=== PATIENT | male | born 1945 | race Caucasian/White ===

== ENCOUNTER 2017-11-24 00:25 | Inpatient (IN) | payer MEDICARE, OTHER ==
[2017-11-24] VITALS (10 sets, daily range): BP systolic 124–175; BP diastolic 70–90
[~2017-11-24] VITALS: Ht 175.3 cm; Wt 90.7 kg
[~2017-11-24 00:25] MED LIST: ASPI-1471 PO; CLOP75TA43 PO; DOXA4TAB58 PO; GLIP-152 PO; GLUC100026 PO; IBUP800T37 PO; LEVO50TA86 PO; METO25TA93 PO; MULT1CAP59 PO; OMEG-96 PO; RANI-366 PO; SIMV-54 PO; UBID100C48 PO
[2017-11-24] MEDS ORDERED: fentaNYL CITR 250 MCG/5 ML AMP ONE (08:13)
[2017-11-24] MEDS ORDERED: PROPOFOL EMUL(*) 10MG/ML 20 ML 20 ML ONE (08:14)
[2017-11-24] MEDS ORDERED: ONDANSETRON 4 MG/2 ML VIAL ONE (08:14)
[2017-11-24] MEDS ORDERED: KETAMINE HCL 200 MG/20 ML MDV ONE (08:15)
[2017-11-24] MEDS ORDERED: NS 0.9% 20 ML SDV 20 ML ONE (08:39)
[2017-11-24] MEDS ORDERED: REMIFENTANIL HCL 1 MG VIAL ONE (08:41)
[2017-11-24] MEDS ORDERED: FAMOTIDINE 20 MG TAB PO ONE (10:00)
[2017-11-24] MEDS ORDERED: PREGABALIN 75 MG CAPSULE PO ONE (10:00)
[2017-11-24] MEDS ORDERED: NORMOSOL R SOLN(*) 1000 ML BAG 1,000 ML IV PRN (10:00)
[2017-11-24] MEDS ORDERED: ceFAZolin(*) 2GM/D5W 50ML 50 ML IVPB ONE (10:00)
[2017-11-24] MEDS ORDERED: LIDOCAINE/SOD BICARB 8.4% SYR ID ONE (10:00)
[2017-11-24] MEDS ORDERED: MIDAZOLAM 2 MG/2 ML VIAL IVP PRN (10:00)
[2017-11-24] MEDS ORDERED: ACETAMINOPHEN 500 MG TAB PO ONE (10:00)
[2017-11-24] MEDS ORDERED: THROMBIN (BOVINE) 20,000 UNIT VIAL ONE (10:02)
[2017-11-24] MEDS ORDERED: ROCURONIUM BROM 10 MG/ML 5 ML ONE (11:00)
[2017-11-24] MEDS ORDERED: fentaNYL CITR 100 MCG/2 ML AMP ONE (14:15)
[2017-11-24] MEDS ORDERED: LR(*) 1000 ML BAG 1,000 ML IV PRN (14:35)
[2017-11-24] MEDS ORDERED: ACETAMINOPHEN 500 MG TAB PO PRN (14:35)
[2017-11-24] MEDS ORDERED: FLUSH 10 ML SYR IVP PRN (14:35)
[2017-11-24] MEDS ORDERED: ONDANSETRON 4 MG/2 ML VIAL IVP PRN (14:35)
[2017-11-24] MEDS ORDERED: ACETAMINOPHEN(*)1000 MG/100 ML 100 ML IVPB PRN (14:35)
[2017-11-24] MEDS ORDERED: diphenhydrAMINE 25 MG CAP PO PRN (14:35)
[2017-11-24] MEDS ORDERED: BENZOCAINE/MENTHOL 1 EACH LOZG PO PRN (14:35)
[2017-11-24] MEDS ORDERED: BISACODYL 10 MG SUPP PR PRN (14:35)
[2017-11-24] MEDS: HYDROmorphone HCL 2 MG/ML SDV ONE (14:49)
--- NOTE | 2017-11-24 16:14 | RADIOLOGY IMAGING REPORT ---
FACILITY: [facility] [place] PATIENT NAME: Edin Mccall : 1945 MR: [id number] V: [id number] EXAM DATE: ORDERING PHYSICIAN: LITTLE GUAJARDO TECHNOLOGIST: Location: [facility] Patient: Edin Mccall : 1945 Visit/Account:[id number] Date of Sevice: 11/24/2017 Exam type: LUMBAR SPINE 1 VIEW History: L3-S1 LAMINECTOMIES, L4-5 POSTEROLATERAL FUSION Comparison: MR lumbar spine October 09, 2017. Findings: Two portable cross table lateral intraoperative views lumbar spine were submitted demonstrate in post erior lumbar interbody fusion at L4-5. IMPRESSION: 1. As above Report Dictated By: Trini Mendenahll MD at 11/24/2017 4:09 PM Report E-Signed By: Trini Mendenhall MD at 11/24/2017 4:10 PM WSN:[email or web address]
[2017-11-24] MEDS: APAP/HYDROCODONE 325/5 TAB PO PRN ×2 (16:59→22:01)
[2017-11-24] MEDS ORDERED: NS(*) 0.9% 250 ML BAG 250 ML ONE (18:09)
--- NOTE | 2017-11-24 18:09 | Hospitalist Consultation ---
History of Present Illness Requesting Physician Dr. Kumar Reason for Consult Diabetes mellitus History of Present Illness This patient was admitted for spine surgery. It is reported that his surgery went well and was without complication. History Problems: (1) CAD (coronary artery disease) (2) AL (myocardial infarction) (3) History of coronary artery stent placement (4) BPH (benign prostatic hyperplasia) (5) DM2 (diabetes mellitus, type 2) Home Meds Reported Medications Ibuprofen (IBUPROFEN) 800 Mg Tablet, 1 TAB PO BID, TAB 11/18/17 Glucosamine Sulfate 2KCL (GLUCOSAMINE) 1,000 Mg Tablet, 1000 MG PO DAILY 11/18/17 Multivitamin (MULTIVITAMINS) 1 Each Capsule, 1 EACH PO DAILY, CAPSULE 11/18/17 [place]-3 Fatty Acids/Fish Oil (OMEGA 3 1,000 MG SOFTGEL) 1 Each Capsule, 1 EACH PO QDAY, CAPSULE 11/18/17 Glipizide (GLIPIZIDE) 5 Mg Tablet, 5 MG PO BID 11/18/17 Levothyroxine Sodium (LEVOTHYROXINE SODIUM) 50 Mcg Tablet, 50 MCG PO QDAY, TAB 11/18/17 Aspirin (ASPIR 81) 81 Mg Tablet.dr, 81 MG PO BID, TAB 11/18/17 Ranitidine Hcl (ZANTAC) 150 Mg Tablet, 150 MG PO DAILY, TAB 11/18/17 Ubidecarenone (COQ-10) 100 Mg Capsule, 100 MG PO BID, CAPSULE 11/18/17 Doxazosin Mesylate (DOXAZOSIN MESYLATE) 4 Mg Tablet, 4 MG PO HS 11/18/17 Simvastatin (SIMVASTATIN) 40 Mg Tablet, 80 MG PO HS, TAB 11/18/17 Metoprolol Tartrate (METOPROLOL TARTRATE) 25 Mg Tablet, 0.5 TAB PO BID, TAB 11/18/17 Clopidogrel Bisulfate (PLAVIX) 75 Mg Tablet, 1 TAB PO QDAY, TAB 11/18/17 Allergies: Coded Allergies: atorvastatin (Verified Allergy, Severe, JOINT AND MUSCLE PAIN, 11/18/17) Patient History: FH: diabetes mellitus FATHER ( OF STROKE), MOTHER, FH: stroke FATHER ( OF STROKE), Hx Smoking: No Smoking Status: Never Smoker Caffeine/Cups Per Day: NONE Hx Alcohol Use: Yes Hx Substance Use Disorder: No Social Drug Use: Never History of IV Drug Use: No Review of Systems All Systems Reviewed/Normal: Yes Exam Vital Signs Vital Signs Date Time Temp Pulse Resp B/P (MAP) Pulse Ox O2 Delivery O2 Flow Rate FiO2 11/24/17 15:50 64 16 97 11/24/17 15:50 Nasal Cannula 2.0 11/24/17 15:50 97.6 124/70 (88) Neuro: No Gross deficits Eyes: PERRLA Cardiovascular: Regular Rate and Rhythm Respiratory: Clear to Auscultation Extremities: No Edema Integumentary: No Cyanosis Assessment and Plan Problems: (1) CAD (coronary artery disease) Assessment & Plan: He is on chronic treatment with aspirin, Plavix, metoprolol , and pravastatin. His aspirin and Plavix have been on hold for surgery. His metoprolol has been ordered with hold parameters. (2) DM2 (diabetes mellitus, type 2) Assessment & Plan: He is on chronic treatment with glipizide, which is currently on hold. He has been placed on sliding scale level #1. (3) BPH (benign prostatic hyperplasia) Assessment & Plan: He is on chronic treatment with doxazosin. Venous Thromboembolism Antithrombotics Is Pt On Any Antithrombotics?: No Exam Sepsis Risk: No Definite Risk ELI MALIN DO Nov 24, 2017 18:09
[2017-11-24] MEDS: ceFAZolin(*) 2GM/D5W 50ML 50 ML IVPB SCH (18:36)
[2017-11-24] MEDS: INSULIN HUM LISPRO 100 UN/ML 3 ML VIAL SUBQ PRN ×2 (18:37→21:30)
[2017-11-24] MEDS: DIAZEPAM 5 MG TAB PO PRN (18:47)
[2017-11-24] MEDS: DOCUSATE SODIUM 100 MG CAP PO SCH (21:27)
[2017-11-24] MEDS: DOXAZOSIN MESYLATE 2 MG TAB PO SCH (21:27)
[2017-11-24] MEDS: METOPROLOL TART 50 MG TAB PO SCH (21:28)
[2017-11-24] MEDS: SIMVASTATIN 40 MG TAB PO SCH (21:28)
[2017-11-25] MEDS: DIAZEPAM 5 MG TAB PO PRN ×2 (01:39→08:33)
[2017-11-25] MEDS: ceFAZolin(*) 2GM/D5W 50ML 50 ML IVPB SCH ×2 (02:31→10:21)
[2017-11-25] MEDS: APAP/HYDROCODONE 325/5 TAB PO PRN (02:39)
[2017-11-25 03:23] VITALS: BP 154/80
[2017-11-25] MEDS: HYDROmorphone HCL 2 MG/ML SDV IVP PRN ×2 (04:45→14:04)
[2017-11-25] MEDS: LEVOTHYROXINE SOD 0.05 MG TAB PO SCH (06:30)
[2017-11-25] MEDS: oxyCODONE HCL 5 MG CAP PO PRN ×4 (06:45→19:38)
[2017-11-25 07:28] VITALS: BP 123/75
--- NOTE | 2017-11-25 07:37 | OPERATIVE REPORT 1 ---
EVENT DATE: November 24, 2017 SURGEON: Yared Kumar M.D. ANESTHESIOLOGIST: Hosea Chris M.D. ANESTHESIA: General endotracheal. FISHER POT: NIKA Lakhani, LEAD PHP DEVELOPER PREOPERATIVE DIAGNOSIS 1. Lumbar third vertebra-sacral first vertebra (L3-S1) lumbar spinal stenosis with radiculopathy and neurogenic claudication. 2. Lumbar fourth vertebra-lumbar fifth vertebra (L4-L5) degenerative spondylolisthesis. POSTOPERATIVE DIAGNOSIS 1. Lumbar third vertebra-sacral first vertebra (L3-S1) lumbar spinal stenosis with radiculopathy and neurogenic claudication. 2. Lumbar fourth vertebra-lumbar fifth vertebra (L4-L5) degenerative spondylolisthesis. PROCEDURE PERFORMED 1. Lumbar third vertebra-sacral first vertebra (L3-S1) lumbar laminectomy, revision. 2. Lumbar fourth vertebra-lumbar fifth vertebra (L4-L5) posterior lateral instrumentation and fusion. IV FLUIDS 1600 mL. ESTIMATED BLOOD LOSS 140 mL. IMPLANTS USED 6.5 mm x 45 mm pedicle screws from [employer] x4, 5.5 mm x 45 mm connecting rods from [employer] x2 and locking caps from [employer] x4. SPECIMENS None. DRAINS None. COMPLICATIONS None. DISPOSITION Post-Anesthesia Care Unit. INDICATIONS Mr. Mccall is a 72-year-old gentleman with radiating anterior thigh pain, numbness and tingling. He had weakness in the extremities as well secondary to radiating pain and burning as well as weakness and heaviness in his legs. The majority of the symptoms were in an L4 distribution, although he did have symptoms down the posterior thighs and calves as well. His physical examination revealed full lumbar range of motion and normal muscle strength and sensation. His imaging studies showed severe spinal stenosis at L4-L5, where there was also an anterior listhesis present. There was L3-L4 stenosis and L5- S1 stenosis as well in addition to postsurgical changes consistent with laminoforaminotomy. Secondary to ongoing symptoms and failure to improve with nonsurgical care, Mr. Mccall was offered and elected to undergo lumbar laminectomies from L3-S1 with an L4-L5 posterior lateral instrumented fusion. Prior to surgery, I explained in detail to the patient the possible risks of surgery. These risks include bleeding, infection, damage to surrounding structures, nerve root injury, need for further surgery, spinal fluid leak, meningitis, persistent and/or worsening pain, , blindness, sexual dysfunction, autonomic nervous system dysfunction and as well as other unforeseen medical and surgical complications. We discussed the fact that revision surgery such as his have a higher incidence of surgical complications and he voiced understanding. DESCRIPTION OF PROCEDURE On the date of surgery, the patient was met in the preoperative hold area and all questions were answered. The operative site was identified and marked by myself. The patient was then brought in good condition to the operating room and after succumbing to anesthesia was placed in the prone position on a Christiano table. All bony protuberances and soft tissues were well padded in the standard fashion. Care was taken to maintain appropriate perfusion pressures during anesthesia. Prior to incision, preoperative antibiotics were administered according to the appropriate timing schedule. At the conclusion of the procedure, sponge and needle counts were correct x2. A final time-out was undertaken by members of the operating team to confirm correct patient, correct levels and correct surgery. An incision was then made over the intended surgical levels and sharp dissection was carried out down to the posterior elements. A large amount of postsurgical scar was encountered from about L5 down to S1 and this was carefully removed with a rongeur. A lateral radiograph was obtained to confirm appropriate spinal levels and then the Bovie was used to clear all soft tissues from the posterior elements including exposing the pedicle screw starting points for L4 and L5 pedicle screws bilaterally. This was accomplished by clearing down the laminas up to the pars intra-articularis and then out to the tips of the transverse processes of L4 and L5 bilaterally. A this point, thrombin soaked sponges were packed into those lateral gutters while we performed the laminectomy. A Leksell rongeur was used to remove the spinous processes of L3, L4 and L5. The midline was thinned further with a Leksell rongeur and high-speed bur. At the L3-L4 level, the superior insertion of the ligamentum flavum was undermined off the inferior aspect of the L3 lamina. A #4 Kerrison was used to perform midline decompression of the L3 lamina, taking care to use the Kumar elevator to free up any dural adhesions from surrounding bone and soft tissue prior to use of the Kerrison punch. I then moved inferiorly, again performing a midline decompression with a #4 Kerrison punch and again taking care to free up any dural adhesions prior to use of the Kerrison. Once the midline decompression was complete, I performed bilateral lateral recess decompressions at L3-L4, L4- L5 and L5-S1. At the conclusion of the decompression, a Beadle elevator was used to ensure adequate decompression of the lateral recesses as well as at the foramina at all levels. Attention was then turned to placement of pedicle screws in the fusion portion of the procedure. Starting points for pedicle screws were identified at approximately the intersection of the pars intra-articularis, the midpoint of the transverse process and the lateral border of the facet joint. A high-speed bur was used to decorticate the starting point and then a Lenke type probe was advanced against resistance through the isthmus of the pedicle and into the vertebral body. A ball tip feeler was used to palpate the pedicle superiorly, inferiorly , medially, laterally as well as distally to ensure absence of bony breaching. 6.5 mm x 45 mm pedicle screws were chosen and inserted. As each screw was inserted, it was tested with neurophysiologic monitoring to confirm absence of bony breaching. Once all four screws had been placed, specifically bilateral screws at L4 and L5, we then selected 45 mm connecting rods and placed these within the tulips. On the right side, a very small reduction was required while on the left side a slightly more significant reduction was needed. Once the rods were seated int he tulips of the screws, locking caps were applied and tightened and then they were finally tightened. The wound was irrigated with copious sterile saline solution and then I used the high-speed bur to decorticate the transverse processes of L4 and L5 bilaterally. The local bone that had been harvested from the laminectomy was run through a bone bill and then packed in the lateral gutters along the transverse processes of L4 and L5 bilaterally. A final radiograph was obtained to confirm appropriate placement of instrumentation and the wound was then closed in layers using a running stitch for the deep fascia, inverted interrupted sutures for the subcutaneous tissue and then a running subcuticular skin stitch. Sponge and needle counts were correct x2. POSTOPERATIVE CARE PLAN Mr. Mccall will remain in the hospital overnight and perhaps longer, depending on how he does with physical therapy and his postoperative recovery. He will then follow up in my clinic two weeks postoperatively for a wound check and examination. BRANNON
[2017-11-25] MEDS ORDERED: NS(*) 0.9% 500 ML BAG 500 ML IV PRN (08:25)
[2017-11-25] MEDS: METOPROLOL TART 50 MG TAB PO SCH ×2 (09:01→21:32)
[2017-11-25] MEDS: INSULIN HUM LISPRO 100 UN/ML 3 ML VIAL SUBQ PRN ×4 (09:02→19:48)
[2017-11-25] MEDS: DOCUSATE SODIUM 100 MG CAP PO SCH ×2 (09:05→21:31)
--- NOTE | 2017-11-25 09:57 | Hospitalist Progress Note ---
Subjective Progress Notes Subjective He has complaints of pain to the surgical site. He had no acute events overnight. Patient Complains of: Cardiovascular: No: Chest Pain Respiratory: No: Shortness of Breath Physical Exam Vital Signs Date Time Temp Pulse Resp B/P (MAP) Pulse Ox O2 Delivery O2 Flow Rate FiO2 11/25/17 07:37 93 Nasal Cannula 1.0 11/25/17 07:28 98.5 88 16 123/75 (91) Intake and Output 11/26/17 07:00 Intake Total 160 ml Balance 160 ml Intake Oral 160 ml General Appearance: Alert, Awake, No Acute Distress, Afebrile Neuro: No Gross deficits Cardiovascular: Regular Rate and Rhythm Respiratory: No Respiratory Distress, Clear to Auscultation GI: Soft and Non-Tender Psych: Alert & Oriented X3, Appropriate Mood & Affect Assessment and Plan Problems: (1) CAD (coronary artery disease) Assessment & Plan: He is on chronic treatment with aspirin, Plavix, metoprolol , and pravastatin. His aspirin and Plavix have been on hold for surgery. We will get approval from Dr. Kumar to restart his Plavix and Aspirin. His metoprolol has been ordered with hold parameters. (2) DM2 (diabetes mellitus, type 2) Assessment & Plan: He is on chronic treatment with glipizide, which is currently on hold. He has been placed on sliding scale level #1. (3) BPH (benign prostatic hyperplasia) Assessment & Plan: He is on chronic treatment with doxazosin. Exam Sepsis Risk: No Definite Risk COLIN BARILLAS ELEMENTARY EDUCATION TUTOR Nov 25, 2017 09:57
[2017-11-25 11:30] VITALS: BP 136/75
[2017-11-25 12:11] VITALS: Ht 175.3 cm; Wt 90.7 kg
--- NOTE | 2017-11-25 17:51 | RADIOLOGY IMAGING REPORT ---
FACILITY: [facility] PATIENT NAME: Edin Mccall : 1945 MR: [id number] V: [id number] EXAM DATE: ORDERING PHYSICIAN: LITTLE GUAJARDO TECHNOLOGIST: Location: [facility] [place] Patient: Edin Mccall : 1945 Visit/Account:[id number] Date of Sevice: 11/25/2017 Exam type: LUMBAR SPINE 2 OR 3 VIEW History: lumbar surgery Comparison: Intraoperative images the lumbar spine November 24, 2017. Findings: AP and lateral views of the lumbar spine demonstrate posterior decompression at L3-4 and five. There are bilateral pedicle screws and posterior fixation rods from posterior lumbar interbody fusion at L 4-5. There is moderate disc space narrowing at L4-5. No subluxations are appreciated. Incidentally noted are moderate vascular calcifications in the abdominal aorta IMPRESSION: 1. Postsurgical changes from posterior decompression at L3-L5 with a posterior lumbar interbody fusi on at L4-5. No subluxations identified Report Dictated By: Trini Mendenhall MD at 11/25/2017 5:45 PM Report E-Signed By: Trini Mendenhall MD at 11/25/2017 5:47 PM WSN:[email or web address]
[2017-11-25 20:07] VITALS: BP 148/80
[2017-11-25] MEDS: DOXAZOSIN MESYLATE 2 MG TAB PO SCH (21:31)
[2017-11-25] MEDS: SIMVASTATIN 40 MG TAB PO SCH (21:31)
[2017-11-25 23:30] VITALS: BP 124/79
[2017-11-26] VITALS (7 sets, daily range): BP systolic 123–157; BP diastolic 76–85
[2017-11-26] MEDS: APAP/HYDROCODONE 325/5 TAB PO PRN ×4 (04:48→23:31)
[2017-11-26] MEDS: LEVOTHYROXINE SOD 0.05 MG TAB PO SCH (06:36)
[2017-11-26] MEDS: INSULIN HUM LISPRO 100 UN/ML 3 ML VIAL SUBQ PRN ×3 (08:17→21:37)
[2017-11-26] MEDS: DOCUSATE SODIUM 100 MG CAP PO SCH ×2 (09:51→21:31)
[2017-11-26] MEDS: METOPROLOL TART 50 MG TAB PO SCH ×2 (09:52→21:34)
[2017-11-26] MEDS: RANITIDINE HCL 150 MG TAB PO SCH ×2 (11:32→21:31)
[2017-11-26] MEDS: MAGNESIUM HYDROXIDE* 30ML UDCP PO PRN (11:32)
[2017-11-26] MEDS: oxyCODONE HCL 5 MG CAP PO PRN ×3 (11:32→21:54)
[2017-11-26] MEDS: HYDROmorphone HCL 2 MG/ML SDV IVP PRN (13:34)
--- NOTE | 2017-11-26 14:33 | Hospitalist Progress Note ---
Subjective Progress Notes Subjective Patient has complaints of pain to surgical site. He reports decreased mobility since surgery. He had no acute events overnight. Patient Complains of: Cardiovascular: No: Chest Pain Respiratory: No: Shortness of Breath Physical Exam Vital Signs Date Time Temp Pulse Resp B/P (MAP) Pulse Ox O2 Delivery O2 Flow Rate FiO2 11/26/17 11:37 98.0 96 12 153/85 (107) 90 Nasal Cannula 0.5 Intake and Output 11/27/17 01:00 Intake Total 1330 ml Output Total 1420 ml Balance -90 ml Intake Oral 1330 ml Output Urine Total 1420 ml # Voids 2 General Appearance: Alert, Awake, No Acute Distress, Afebrile Neuro: No Gross deficits Cardiovascular: Regular Rate and Rhythm Respiratory: No Respiratory Distress, Clear to Auscultation GI: Soft and Non-Tender Psych: Alert & Oriented X3, Appropriate Mood & Affect Assessment and Plan Problems: (1) CAD (coronary artery disease) Assessment & Plan: He is on chronic treatment with aspirin, Plavix, metoprolol , and pravastatin. His aspirin and Plavix have been on hold for surgery. We will get approval from Dr. Kumar to restart his Plavix and Aspirin. His metoprolol has been ordered with hold parameters. (2) DM2 (diabetes mellitus, type 2) Assessment & Plan: He is on chronic treatment with glipizide, which is currently on hold. He has been placed on sliding scale level #1. (3) BPH (benign prostatic hyperplasia) Assessment & Plan: He is on chronic treatment with doxazosin. Exam Sepsis Risk: No Definite Risk COLIN BARILLAS SOAKING TANK WORKER Nov 26, 2017 14:32
[2017-11-26] MEDS: SIMVASTATIN 40 MG TAB PO SCH (21:30)
[2017-11-26] MEDS: DOXAZOSIN MESYLATE 2 MG TAB PO SCH (21:31)
[2017-11-27 03:46] VITALS: BP 124/82
[2017-11-27] MEDS: APAP/HYDROCODONE 325/5 TAB PO PRN ×4 (03:51→23:20)
[2017-11-27] MEDS: LEVOTHYROXINE SOD 0.05 MG TAB PO SCH (06:05)
[2017-11-27 07:04] VITALS: BP 144/81
[2017-11-27] MEDS: RANITIDINE HCL 150 MG TAB PO SCH ×2 (08:43→20:56)
[2017-11-27] MEDS: DOCUSATE SODIUM 100 MG CAP PO SCH ×2 (08:44→20:56)
[2017-11-27] MEDS: METOPROLOL TART 50 MG TAB PO SCH ×2 (08:44→20:56)
[2017-11-27] MEDS ORDERED: glipiZIDE 5 MG TAB PO SCH (09:45)
[2017-11-27] MEDS: CLOPIDOGREL BISULFATE 75MG TAB PO SCH (10:38)
[2017-11-27] MEDS: DIAZEPAM 5 MG TAB PO PRN (10:39)
[2017-11-27] MEDS: ASPIRIN 81 MG ENTERIC COATED PO SCH (10:39)
[2017-11-27 11:07] VITALS: BP 158/78
--- NOTE | 2017-11-27 11:17 | Hospitalist Progress Note ---
Subjective Progress Notes Subjective He has no complaints this morning. He had no acute events overnight. Patient Complains of: Cardiovascular: No: Chest Pain Respiratory: No: Shortness of Breath Physical Exam Vital Signs Date Time Temp Pulse Resp B/P (MAP) Pulse Ox O2 Delivery O2 Flow Rate FiO2 11/27/17 11:07 97.8 85 16 158/78 (104) 94 Nasal Cannula 1.5 Intake and Output 11/28/17 07:00 Intake Total 600 ml Output Total 500 ml Balance 100 ml Intake Oral 600 ml Output Urine Total 500 ml General Appearance: Alert, Awake, No Acute Distress, Afebrile Neuro: No Gross deficits Cardiovascular: Regular Rate and Rhythm Respiratory: No Respiratory Distress, Clear to Auscultation GI: Soft and Non-Tender Psych: Alert & Oriented X3, Appropriate Mood & Affect Assessment and Plan Problems: (1) CAD (coronary artery disease) Assessment & Plan: He is on chronic treatment with aspirin, Plavix, metoprolol , and pravastatin. We have restarted aspirin and Plavix. His metoprolol has been ordered with hold parameters. (2) DM2 (diabetes mellitus, type 2) Assessment & Plan: He is on chronic treatment with glipizide. He also has been placed on sliding scale level #1. (3) BPH (benign prostatic hyperplasia) Assessment & Plan: He is on chronic treatment with doxazosin. Exam Sepsis Risk: No Definite Risk COLIN BARILLAS DELIVERY ASSISTANT Nov 27, 2017 11:17
[2017-11-27] MEDS: oxyCODONE HCL 5 MG CAP PO PRN ×2 (11:27→19:51)
[2017-11-27] MEDS: INSULIN HUM LISPRO 100 UN/ML 3 ML VIAL SUBQ PRN ×2 (12:24→16:54)
[2017-11-27] MEDS: HYDROmorphone HCL 2 MG/ML SDV IVP PRN (12:39)
[2017-11-27 14:23] VITALS: BP 160/83
[2017-11-27] MEDS: glipiZIDE 5 MG TAB PO SCH (16:54)
[2017-11-27 18:57] VITALS: BP 162/81
[2017-11-27] MEDS: DOXAZOSIN MESYLATE 2 MG TAB PO SCH (20:56)
[2017-11-27] MEDS: MAGNESIUM HYDROXIDE* 30ML UDCP PO PRN (20:57)
[2017-11-27] MEDS: SIMVASTATIN 40 MG TAB PO SCH (20:57)
[2017-11-27 22:29] VITALS: BP 145/81
[2017-11-28 02:46] VITALS: BP 137/98
[2017-11-28] MEDS: LEVOTHYROXINE SOD 0.05 MG TAB PO SCH (06:07)
[2017-11-28] MEDS: APAP/HYDROCODONE 325/5 TAB PO PRN (07:22)
[2017-11-28 07:23] VITALS: BP 164/83
[2017-11-28] MEDS: RANITIDINE HCL 150 MG TAB PO SCH (08:20)
[2017-11-28] MEDS: DOCUSATE SODIUM 100 MG CAP PO SCH (08:20)
[2017-11-28] MEDS: CLOPIDOGREL BISULFATE 75MG TAB PO SCH (08:20)
[2017-11-28] MEDS: ASPIRIN 81 MG ENTERIC COATED PO SCH (08:20)
[2017-11-28] MEDS: METOPROLOL TART 50 MG TAB PO SCH (08:20)
[2017-11-28] MEDS: glipiZIDE 5 MG TAB PO SCH (08:21)
[2017-11-28] MEDS: INSULIN HUM LISPRO 100 UN/ML 3 ML VIAL SUBQ PRN (08:21)
[2017-11-28] MEDS ORDERED: POLYETHYLENE GLYCOL 17 GM PKT PO SCH (09:00)
--- NOTE | 2017-11-28 09:31 | Hospitalist Progress Note ---
Subjective Progress Notes Subjective He has complaints of constipation today. He had no acute events overnight. Patient Complains of: Cardiovascular: No: Chest Pain Respiratory: No: Shortness of Breath Physical Exam Vital Signs Date Time Temp Pulse Resp B/P (MAP) Pulse Ox O2 Delivery O2 Flow Rate FiO2 11/28/17 08:27 96 Room Air 11/28/17 07:23 97.9 88 10 164/83 (110) 11/28/17 02:46 1.0 Intake and Output 11/29/17 07:00 Intake Total 240 ml Output Total 400 ml Balance -160 ml Intake Oral 240 ml Output Urine Total 400 ml General Appearance: Alert, Awake, No Acute Distress, Afebrile Neuro: No Gross deficits Cardiovascular: Regular Rate and Rhythm Respiratory: No Respiratory Distress, Clear to Auscultation Psych: Alert & Oriented X3, Appropriate Mood & Affect Assessment and Plan Problems: (1) S/P lumbar fusion Status: Acute Assessment & Plan: Followed by Dr. Kumar. We will add Miralax for constipation. He will go to [facility] today for further rehab. (2) CAD (coronary artery disease) Assessment & Plan: He is on chronic treatment with aspirin, Plavix, metoprolol , and pravastatin. His metoprolol has been ordered with hold parameters. (3) DM2 (diabetes mellitus, type 2) Assessment & Plan: He is on chronic treatment with glipizide. He also has been placed on sliding scale level #1. (4) BPH (benign prostatic hyperplasia) Assessment & Plan: He is on chronic treatment with doxazosin. Exam Sepsis Risk: No Definite Risk COLIN BARILLAS Nov 28, 2017 09:31
== END 2017-11-28 11:29 | DRG 460 ==
LOC: OR 00:25 → MED 15:50 → INTOOBSV 15:50 → OBSVTOIN 11-25
PROVIDERS: ADMIT Orthopaedic Surgery; ATTEND Orthopaedic Surgery
PROC: 0SG0071 Fusion of Lumbar Vertebral Joint with Autologous Tissue Substitute, Posterior Approach, Posterior Column, Open Approach (ICD-10-PCS; principal; 2017-11-25)
PROC: 01NB0ZZ Release Lumbar Nerve, Open Approach (ICD-10-PCS; 2017-11-25)
DX: M48.062 Spinal stenosis, lumbar region with neurogenic claudication (principal); M43.16 Spondylolisthesis, lumbar region; M54.16 Radiculopathy, lumbar region; M48.07 Spinal stenosis, lumbosacral region; M54.17 Radiculopathy, lumbosacral region; I25.10 Atherosclerotic heart disease of native coronary artery without angina pectoris; E11.9 Type 2 diabetes mellitus without complications; I10 Essential (primary) hypertension; I25.2 Old myocardial infarction; E78.5 Hyperlipidemia, unspecified; K21.9 Gastro-esophageal reflux disease without esophagitis; N40.0 Benign prostatic hyperplasia without lower urinary tract symptoms; Z95.1 Presence of aortocoronary bypass graft
CPT/HCPCS: 36415; 36416; 72020; 72100; 82948; 86850; 86900; 86901; 97161; C1713; G0378; J0690; J1170; J2405; J2704; J3010; J3490; J7050

== ENCOUNTER 2017-11-28 11:30 | Inpatient (IN) | payer MEDICARE, OTHER ==
[2017-11-25 12:11] VITALS: Ht 175.3 cm; Wt 93.0 kg
[~2017-11-28] VITALS: Ht 175.3 cm; Wt 93.0 kg
[2017-11-28] MEDS ORDERED: MAGNESIUM HYDROXIDE* 30ML UDCP PO PRN (11:43)
[2017-11-28] MEDS ORDERED: ACETAMINOPHEN 500 MG TAB PO PRN (11:43)
[2017-11-28] MEDS ORDERED: oxyCODONE HCL 5 MG CAP PO PRN (11:43)
[2017-11-28] MEDS ORDERED: POLYETHYLENE GLYCOL 17 GM PKT PO SCH (11:43)
[2017-11-28] MEDS ORDERED: BISACODYL 10 MG SUPP PR PRN (11:43)
[2017-11-28] MEDS ORDERED: POLYETHYLENE GLYCOL 17 GM PKT PO PRN (11:45)
[2017-11-28] MEDS: APAP/HYDROCODONE 325/5 TAB PO PRN ×4 (12:28→21:30)
[2017-11-28] MEDS: INSULIN HUM LISPRO 100 UN/ML 3 ML VIAL SUBQ PRN (12:41)
[2017-11-28 13:20] VITALS: BP 160/76
--- NOTE | 2017-11-28 13:44 | Consultant Pharmacy Review ---
Antenna Design Engineer Review Beers Criteria Medication 2014 Alpha 1 Blockers: Doxazosin Benzodiazapines (long acting): Diazepam Sliding Scale Insulin: Slidin Scale Insulin Other General Cautions Lexicomp Interaction Analysis A = No known interaction C = Monitor therapy X = Avoid combination B = No action needed D = Consider therapy modification Drugs in this analysis: Acetaminophen; Bisacodyl; Cardura; DiazePAM; Docusate Sodium (SYN); Ecotrin Low Strength [OTC]; Glucotrol; HumaLOG; Levothyroxine; Lortab; Metoprolol; Milk of Magnesia [OTC]; MiraLax [OTC]; Plavix; RaNITIdine; Zocor * Drug-Drug Interactions D Bisacodyl Milk of Magnesia [OTC] (Antacids) D DiazePAM (SEAWEED HARVESTER Depressants) Lortab (HYDROcodone) D Levothyroxine Milk of Magnesia [OTC] (Magnesium Salts) Depends on Route C Cardura (Alpha1-Blockers) Metoprolol (Beta-Blockers) Depends on Dosage Form C Ecotrin Low Strength [OTC] (Agents with Antiplatelet Properties) Plavix ( Agents with Antiplatelet Properties) Depends on International labeling C Ecotrin Low Strength [OTC] (Salicylates) Glucotrol (Blood Glucose Lowering Agents) Depends on Dose C Ecotrin Low Strength [OTC] (Salicylates) HumaLOG (Blood Glucose Lowering Agents) Depends on Dose C Ecotrin Low Strength [OTC] (Salicylates) Plavix (Agents with Antiplatelet Properties) C Glucotrol (Antidiabetic Agents) HumaLOG (Hypoglycemia-Associated Agents) C Glucotrol (Hypoglycemia-Associated Agents) HumaLOG (Hypoglycemia-Associated Agents) C Glucotrol (Sulfonylureas) Metoprolol (Beta-Blockers) Depends on Dosage Form C Glucotrol (Sulfonylureas) RaNITIdine C HumaLOG (Insulins) Metoprolol (Beta-Blockers) B Acetaminophen Lortab (Opioid Analgesics) B DiazePAM Metoprolol B DiazePAM Milk of Magnesia [OTC] (Antacids) B Ecotrin Low Strength [OTC] (Salicylates) Milk of Magnesia [OTC] (Antacids) Depends on Duration B Glucotrol (Sulfonylureas) Milk of Magnesia [OTC] (Antacids) B Milk of Magnesia [OTC] (Antacids) RaNITIdine (Histamine H2 Receptor Antagonists) B Plavix (Clopidogrel) Zocor (Simvastatin) Pneumococcal Vaccine HX Pneumo Vac ([id number]): Yes (01/2017) Comments Regarding the Review Patient had Prevnar 13 in January 2017 so would be a candidate for Pneumovax 23 this January. Please monitor for falls and respiratory depression due to Lortab ,OxyIR and Diazepam use. Re-evaluate necessity of these meds every 1-2 weeks. Do not exceed 3 gms of acetaminophen in 24 hours as patient has orders for both Lortab and acetaminophen. CORINA CHANDLER Nov 28, 2017 13:43
--- NOTE | 2017-11-28 14:18 | Medical Nutrition Therapy ---
Nutrition Anthropometrics Height (Inches): 69.00 Height (Calculated Centimeters: 175.725326 Weight (Pounds): 205 Weight (Calculated Kilograms): 92.986 Tomás Nutrition Score: Adequate Tomás Nutrition Risk Score: 19 Dietary Referral Nutrition Risk Factors: Nutrition Risk Comment: Physical Findings Physical Appearance: Obese BMI 30-39 Skin Appearance Skin Appearance: Edema Edema Location Modifier: Edema Location: Type of Edema: Degree of Edema: Gastrointestinal Symptoms GI Symtoms: Constipation Tube Present: Bowel Sounds: Recent Bowel Pattern: Constipated Stool Characteristics: Nutritional Diagnosis Nutritional Risk Acuity 3: Fair Appetite Nutritional Risk Acuity 4: Modified Diet Past Medical History: 11/25. Hx of coronary artery bypass, myocardial infarction, stent, and T2DM. Nutritional Acuity: 3-Mild Nutrition Diagnosis: Increased Nutrient Needs Nutrition Etiology: Physiological Causes Nutrition Problem/Etiology/Sym: Increased protein needs related to physiological causes as evidenced by recent back surgery. Energy Requirement: 1960 ([id number]) Protein Requirement: 92 (92-101g (1-1.1 g/kg)) Fluid Requirement: 1960 Diet Type: Diabetic Nutrition Intervention: Cont diet as ordered, Encourage intake Nutrition Monitoring & Eval RD Patient Assessment Time: [address] Assessment Type: RD Assessment Patient Nutrition Acuity: 3-Mild Follow Up Date: Dec 02, 2017 Nutritional Comment: 12/29 Pt transferred to [facility] for ongoing rehab following lumbar fusion surgery. He is currently on an ADA diet with an average intake of 65%. Latest glc 174. Will cont to monitor and encourage intake. -NATASHA CHOWDHURY Nov 28, 2017 14:18
[2017-11-28] MEDS: glipiZIDE 5 MG TAB PO SCH (16:40)
[2017-11-28] MEDS: RANITIDINE HCL 150 MG TAB PO SCH (20:44)
[2017-11-28] MEDS: DOCUSATE SODIUM 100 MG CAP PO SCH (20:44)
[2017-11-28] MEDS: SIMVASTATIN 40 MG TAB PO SCH (20:44)
[2017-11-28] MEDS: DOXAZOSIN MESYLATE 2 MG TAB PO SCH (20:44)
[2017-11-28] MEDS: UBIDECARENONE 100 MG PO SCH (20:44)
[2017-11-28] MEDS: METOPROLOL TART 50 MG TAB PO SCH (20:45)
[2017-11-29] MEDS: APAP/HYDROCODONE 325/5 TAB PO PRN ×5 (01:32→16:35)
[2017-11-29] MEDS: LEVOTHYROXINE SOD 0.05 MG TAB PO SCH (06:36)
[2017-11-29 08:02] VITALS: BP 151/78
--- NOTE | 2017-11-29 08:41 | OT ECF NOTE ---
Type of Note: Initial Note Primary Medical Diagnosis: Generalized weakness s/p L3-S1 laminectomy and L4-L5 fusion. DOS: 11/25/[address] Kumar. LUMBAR PRECAUTIONS. [place] lumbar corset donned for comfort when ambulating Occupational Therapy Evaluation Date: 11/29/17 SUBJECTIVE: Prior Hospitalization: [facility] 11/25/17 thru 11/28/17 Prior Level of Function: Independent with ADLs. Assist from spouse for occasional IADLs (cooking/cleaning). Prior Living Status: Bi-level house Spouse Assist by family Community Services: No known needs Home Accessibility: Stairs with rails All needs on one level Basement in home Walk-in shower Tub/shower combination Equipment Owned: Front wheeled walker. Pt plans to obtain a toilet riser with arms from his local [facility]. Medical Complications/Past Medical History: CAD, Type 2 DM, BPH Psychosocial Support: Supportive spouse Pain Scale (0-10): 4/10. Reports improved pain with ambulation when Baja corset is donned. OBJECTIVE: Strength: MMT: Right Left Shoulder Flexion WFL WFL Elbow Flexion WFL WFL Wrist Extension WFL WFL Welt Trimming Machine Operator WFL WFL (5= normal, 4= good, 3= fair, 2= poor, 1= trace) ROM: Both upper extremities, WFL Sensation: No concerns Functional Transfer: Assistive Device: Front wheeled walker, Gait belt Transfer Ability: CGA. SpO2 WNL room air. ADL: Upper body dressing: Assistive device: Upper body dressing ability: Minimum assistance Lower body dressing: Assistive device: Lower body dressing ability: N/T Toileting: Assistive device: Raised toilet seat, Grab rails Toileting ability: CGA Grooming/hygiene: Assistive device: Grooming ability: N/T Bathing: Assistive device: Bathing ability: N/T Standardized Assessment: Marcus Index of Activities of Daily Living 15/20 upon initial evaluation (02/05). ASSESSMENT: Mauricio presents to [facility] with decreased balance and endurance s/p L3- S1 laminectomy and L4-L5 fusion. At [facility] he was (I) with ADLs/IADLs. Currently, he requires CGA-Min A for ADLs and presents with fatigue/decreased balance with short distance ambulation. He will benefit from skilled OT services to improve activity tolerance and optimize (I) with ADLs. Problem List/Current Limitations: Pain Decreased activity tolerance Decreased strength Decreased balance Generalized weakness Short Term Goals: 1) Pt will be Mod (I) UB/LB dressing. 2) Pt will be Mod (I) toilet task. 3) Pt will be Independent grooming/hygiene. 4) Pt will be SBA shower task. 5) Pt Marcus Index of ADLs score will improve by 2 points. Security Public Safety Officer Goals: Return home with occasional assist from spouse Patient Goals: Return home Rehabilitation Prognosis: Good Barriers to Discharge: Pain PLAN: The patient will benefit from skilled occupational therapy services 5 times per week for 2 weeks including: Ther ex ADL training Safety training Ther act IADL training Transfer training Adaptive equip training Bed mobility Energy conservation Thank you for this referral. If you have any questions, concerns, or comments about this report or plan, please contact me at . Nina August MS, OTR/L Occupational Therapist [place]
[2017-11-29] MEDS: RANITIDINE HCL 150 MG TAB PO SCH ×2 (08:45→21:05)
[2017-11-29] MEDS: METOPROLOL TART 50 MG TAB PO SCH ×2 (08:45→21:05)
[2017-11-29] MEDS: ASPIRIN 81 MG ENTERIC COATED PO SCH (08:45)
[2017-11-29] MEDS: DIAZEPAM 5 MG TAB PO PRN ×2 (08:45→21:06)
[2017-11-29] MEDS: CLOPIDOGREL BISULFATE 75MG TAB PO SCH (08:45)
[2017-11-29] MEDS: glipiZIDE 5 MG TAB PO SCH ×2 (08:46→17:35)
[2017-11-29] MEDS: DOCUSATE SODIUM 100 MG CAP PO SCH ×2 (08:46→21:00)
[2017-11-29] MEDS: INSULIN HUM LISPRO 100 UN/ML 3 ML VIAL SUBQ PRN ×4 (08:47→21:07)
[2017-11-29] MEDS: UBIDECARENONE 100 MG PO SCH (09:00)
[2017-11-29 15:40] VITALS: BP 148/79
[2017-11-29] MEDS: oxyCODONE HCL 5 MG CAP PO PRN (21:05)
[2017-11-29] MEDS: UBIQUINONE PO SCH (21:05)
[2017-11-29] MEDS: DOXAZOSIN MESYLATE 2 MG TAB PO SCH (21:06)
[2017-11-29] MEDS: SIMVASTATIN 40 MG TAB PO SCH (21:06)
[2017-11-30] MEDS: oxyCODONE HCL 5 MG CAP PO PRN ×2 (01:06→21:52)
[2017-11-30] MEDS: LEVOTHYROXINE SOD 0.05 MG TAB PO SCH (06:15)
[2017-11-30] MEDS: APAP/HYDROCODONE 325/5 TAB PO PRN ×2 (06:15→17:09)
[2017-11-30 07:35] VITALS: BP 141/83
[2017-11-30] MEDS: UBIQUINONE PO SCH ×2 (09:03→21:00)
[2017-11-30] MEDS: METOPROLOL TART 50 MG TAB PO SCH ×2 (09:03→21:47)
[2017-11-30] MEDS: RANITIDINE HCL 150 MG TAB PO SCH ×2 (09:03→21:45)
[2017-11-30] MEDS: CLOPIDOGREL BISULFATE 75MG TAB PO SCH (09:03)
[2017-11-30] MEDS: DOCUSATE SODIUM 100 MG CAP PO SCH ×2 (09:03→21:45)
[2017-11-30] MEDS: ASPIRIN 81 MG ENTERIC COATED PO SCH (09:03)
[2017-11-30] MEDS: INSULIN HUM LISPRO 100 UN/ML 3 ML VIAL SUBQ PRN ×3 (09:04→17:13)
[2017-11-30] MEDS: glipiZIDE 5 MG TAB PO SCH ×2 (09:10→17:09)
[2017-11-30 15:10] VITALS: BP 169/86
[2017-11-30] MEDS: SIMVASTATIN 40 MG TAB PO SCH (21:52)
[2017-11-30] MEDS: DOXAZOSIN MESYLATE 2 MG TAB PO SCH (21:57)
[2017-12-01] MEDS: oxyCODONE HCL 5 MG CAP PO PRN ×2 (03:12→23:53)
[2017-12-01] MEDS: DIAZEPAM 5 MG TAB PO PRN ×4 (03:12→23:52)
[2017-12-01] MEDS: LEVOTHYROXINE SOD 0.05 MG TAB PO SCH (05:15)
[2017-12-01 07:30] VITALS: BP 138/78
[2017-12-01] MEDS: glipiZIDE 5 MG TAB PO SCH ×2 (08:02→17:07)
[2017-12-01] MEDS: ASPIRIN 81 MG ENTERIC COATED PO SCH (08:33)
[2017-12-01] MEDS: RANITIDINE HCL 150 MG TAB PO SCH ×2 (08:34→20:37)
[2017-12-01] MEDS: METOPROLOL TART 50 MG TAB PO SCH ×2 (08:34→20:37)
[2017-12-01] MEDS: CLOPIDOGREL BISULFATE 75MG TAB PO SCH (08:34)
[2017-12-01] MEDS: UBIQUINONE PO SCH ×2 (08:34→20:37)
[2017-12-01] MEDS: DOCUSATE SODIUM 100 MG CAP PO SCH ×2 (08:36→20:37)
[2017-12-01] MEDS: INSULIN HUM LISPRO 100 UN/ML 3 ML VIAL SUBQ PRN ×3 (08:39→20:40)
[2017-12-01] MEDS: APAP/HYDROCODONE 325/5 TAB PO PRN ×3 (09:23→19:50)
--- NOTE | 2017-12-01 13:18 | Medical Nutrition Therapy ---
Physical Findings Physical Appearance: Obese BMI 30-39 Skin Appearance Skin Appearance: Edema Edema Location Modifier: Edema Location: Type of Edema: Degree of Edema: Gastrointestinal Symptoms GI Symtoms: Change in Bowel Pattern Tube Present: Bowel Sounds: Recent Bowel Pattern: Constipated Stool Characteristics: Nutritional Diagnosis Nutritional Risk Acuity 3: Fair Appetite Nutritional Risk Acuity 4: Modified Diet Past Medical History: 11/25. Hx of coronary artery bypass, myocardial infarction, stent, and T2DM. Nutritional Acuity: 3-Mild Nutrition Diagnosis: Increased Nutrient Needs Nutrition Etiology: Physiological Causes Nutrition Problem/Etiology/Sym: Increased protein needs related to physiological causes as evidenced by recent back surgery. Energy Requirement: 1959 ([id number]) Protein Requirement: 92 (92-101g (1-1.1 g/kg)) Fluid Requirement: 1960 Diet Type: Diabetic Nutrition Intervention: Cont diet as ordered, Encourage intake Nutrition Monitoring & Eval Nutrition Goals: Eat 50-100% Meal, Drink > 2 liters/day RD Patient Assessment Time: [address] Assessment Type: RD Re-Assessment Patient Nutrition Acuity: 3-Mild Follow Up Date: Dec 09, 2017 Nutritional Comment: 12/29 Pt transferred to [facility] for ongoing rehab following lumbar fusion surgery. He is currently on an ADA diet with an average intake of 65%. Latest glc 174. Will cont to monitor and encourage intake. -EK 12/01. Pt cont to have pain in back and hip. Continues to follow a diabetic diet. No meals to report today, but has consumed 25-100% of meals the past couple of days. Pt is receiving 1-5 units Lispro SS. Noteable labs include: elevated BG 195, with no other labs available. Cont diabetic diet and monitor/encourage intake. Cont to monitor BG. NENA OCHOA Dec 01, 2017 10:30
[2017-12-01 16:36] VITALS: BP 140/81
--- NOTE | 2017-12-01 18:49 | PT ECF NOTE ---
Type of Note: Initial Note Primary Medical Diagnosis: Generalized weakness s/p L3-S1 laminectomy and L4-L5 fusion. DOS: 11/25/[address] Kumar. LUMBAR PRECAUTIONS. [place] lumbar corset donned for comfort when ambulating Physical Therapy Evaluation Date: 11/28/17 SUBJECTIVE: Prior Hospitalization: [facility] 11/25/17 thru 11/28/17 Prior Level of Function: Independent with ADLs. Assist from spouse for occasional IADLs (cooking/cleaning). Prior Living Status: Bi-level house, Spouse, Assist by family- Basement is optional Community Services: No known needs Home Accessibility: Stairs with rails, All needs on one level, Basement in home, Walk-in shower, Tub/shower combination Equipment Owned: Front wheeled walker. Pt plans to obtain a toilet riser with arms from his local [facility]. Medical Complications/Past Medical History: CAD, Type 2 DM, BPH Psychosocial Support: Supportive spouse Pain Scale (0-10): 4/10. Reports improved pain with ambulation when Baja corset is donned. OBJECTIVE: Strength: B) LE's limited by discomfort with SLR; all other muscle groups 4/ 5 overall ROM: (please note any abnormalities) No limitations noted Sensation: (please note any abnormalities) Pt reports a numb sensation down B ) anterior thighs and some tingling into toes at times. Other Neuro findings: s/p Lumbar surgery with Dr. Kumar aware of pt reports Bed Mobility: Pt completes log roll in a safe manner with SBA/CGA Assistive device: Bed rail Transfers: Verbal cues, SBA/CGA Assistive Device: Front wheeled walker Gait: Verbal cues, SBA/CGA Assistive device: Front wheeled walker Stairs: Not yet addressed; pt notes full flight of stairs to access basement , which is optional Assistive device: Timed Up and Go (>12 seconds indicated increased risk for falls): 50 seconds with FWW and SBA. 10 meter walk test (0.6m/second cannot function independently): n/a Other Objective Measures: n/a ASSESSMENT: Pt would benefit from further therapy to address improved safety with sit to/from stand transfers and ease of mobility to gain functional independence with ADL's. Pt's TUG test does indicate an increase risk of falls and pt would benefit from improved balance as well as gait speed within safe range to minimize this risk prior to return home. Pt notes that prior to surgery he would occasionally ambulate with a SPC if needed. Problem List/Current Limitations: Pain, Decreased activity ivory, Decreased strength, Decreased balance Short Term Goals: 1. Pt to be modified indep for all bed mobility and supine to/from sit transfers. 2. Pt to be Mod Indep/SBA for all sit to/from stand transfers 3. Pt to be Mod Indep to don/doff brace appropriately 4. Pt to ambulate 300' with least restrictive device and Mod Indep/SBA Prison Goals: Pt to return home with use of least restrictive device and support of as needed. Patient Goals: Return home with improved pain control Rehabilitation Prognosis: Good Barriers for Discharge: Pt notes discomfort and weakness with reports of numb feeling in anterior thighs and numbness in toes at times. Pt indicates that discomfort is certainly improved with baja back corset during ambulation, but indicates that he would like better pain control. PLAN: The patient will benefit from skilled physical therapy services 5 times per week for 2 weeks including: Therapeutic Activities Transfer Training, Gait Training, Stair Training, ADL's, Safety Training, Pt/ Caregiver Training, Bed Mobility Thank you for this referral. If you have any questions, concerns, or comments about this report or plan, please contact me at . h. Cheyanne Stark, PT, MPT MTDD
[2017-12-01] MEDS: DOXAZOSIN MESYLATE 2 MG TAB PO SCH (20:37)
[2017-12-01] MEDS: SIMVASTATIN 40 MG TAB PO SCH (20:37)
[2017-12-02] MEDS: oxyCODONE HCL 5 MG CAP PO PRN (04:02)
[2017-12-02] MEDS: LEVOTHYROXINE SOD 0.05 MG TAB PO SCH (06:19)
[2017-12-02 08:30] VITALS: BP 128/72
[2017-12-02] MEDS: DOCUSATE SODIUM 100 MG CAP PO SCH (08:39)
[2017-12-02] MEDS: UBIQUINONE PO SCH (08:39)
[2017-12-02] MEDS: APAP/HYDROCODONE 325/5 TAB PO PRN ×2 (08:39→13:26)
[2017-12-02] MEDS: ASPIRIN 81 MG ENTERIC COATED PO SCH (08:39)
[2017-12-02] MEDS: INSULIN HUM LISPRO 100 UN/ML 3 ML VIAL SUBQ PRN (08:40)
[2017-12-02] MEDS: glipiZIDE 5 MG TAB PO SCH (08:40)
[2017-12-02] MEDS: RANITIDINE HCL 150 MG TAB PO SCH (08:40)
[2017-12-02] MEDS: CLOPIDOGREL BISULFATE 75MG TAB PO SCH (08:40)
[2017-12-02] MEDS: METOPROLOL TART 50 MG TAB PO SCH (08:40)
[2017-12-02] MEDS ORDERED: DIA5 PO (12:59)
[2017-12-02] MEDS ORDERED: DOCU240C84 PO (13:01)
[2017-12-02] MEDS ORDERED: OXYC-865 PO (13:02)
[2017-12-02] MEDS: DIAZEPAM 5 MG TAB PO PRN (13:45)
--- NOTE | 2017-12-02 15:18 | OT ECF NOTE ---
Type of Note: Discharge note Primary Medical Diagnosis: Generalized weakness s/p L3-S1 laminectomy and L4-L5 fusion. DOS: 11/25/[address] Kumar. LUMBAR PRECAUTIONS. [place] lumbar corset donned for comfort when ambulating Occupational Therapy Evaluation Date: 11/29/17 SUBJECTIVE: Prior Hospitalization: [facility] 11/25/17 thru 11/28/17 Prior Level of Function: Independent with ADLs. Assist from spouse for occasional IADLs (cooking/cleaning). Prior Living Status: Bi-level house Spouse Assist by family Community Services: No known needs Home Accessibility: Stairs with rails All needs on one level Basement in home Walk-in shower Tub/shower combination Equipment Owned: Front wheeled walker. Pt plans to obtain a toilet riser with arms from his local [facility]. Medical Complications/Past Medical History: CAD, Type 2 DM, BPH Psychosocial Support: Supportive spouse Pain Scale (0-10): 3/10. Reports improved pain with ambulation when [place] corset is donned. Pt verbalizes understanding for importance for pain medication adherence. OBJECTIVE: Strength: MMT: Right Left Shoulder Flexion WFL WFL Elbow Flexion WFL WFL Wrist Extension WFL WFL Manager Desktop WFL WFL (5= normal, 4= good, 3= fair, 2= poor, 1= trace) ROM: Both upper extremities, WFL Sensation: No concerns Functional Transfer: Assistive Device: Front wheeled walker Transfer Ability: Modified Independent ambulating x450ft. SpO2 WNL on room air. ADL: Upper body dressing: Assistive device: None Upper body dressing ability: Independent Lower body dressing: Assistive device: None Lower body dressing ability: Independent Toileting: Assistive device: Raised toilet seat, Grab rails Toileting ability: Modified Independent Grooming/hygiene: Assistive device: None Grooming ability: Independent Bathing: Assistive device: Shower chair Bathing ability: N/T with OT. Pt desired to discharge home 12/02/17. Reports no concerns with bathing. Spouse has obtained a shower chair. Standardized Assessment: Marcus Index of Activities of Daily Living 15/20 upon initial evaluation (02/05). 20/20 upon discharge (12/02/17). ASSESSMENT: Mauricio presented to [facility] with decreased balance and endurance s/p L3- S1 laminectomy and L4-L5 fusion. At [facility] he was (I) with ADLs/IADLs. He has met addressed skilled OT goals and desires to discharge home today (12/02/17). Short Term Goals: 1) Pt will be Mod (I) UB/LB dressing. GOAL MET. 2) Pt will be Mod (I) toilet task. GOAL MET. 3) Pt will be Independent grooming/hygiene. GOAL MET. 4) Pt will be SBA shower task. Not addressed. 5) Pt Marcus Index of ADLs score will improve by 2 points. GOAL MET. 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 Kumar on 12/04/17. Mauricio reports no further questions /concerns for OT at time of discharge. Thank you for this referral. If you have any questions, concerns, or comments about this report or plan, please contact me at . Nina August MS, OTR/L Occupational Therapist [place]
--- NOTE | 2017-12-02 16:08 | PT ECF NOTE ---
Type of Note: Discharge Summary Primary Medical Diagnosis: Generalized weakness s/p L3-S1 laminectomy and L4-L5 fusion. DOS: 11/25/[address] Kumar. LUMBAR PRECAUTIONS. [place] lumbar corset donned for comfort when ambulating Physical Therapy Discharge Date: 12/02/17 SUBJECTIVE: Prior Hospitalization: [facility] 11/25/17 thru 11/28/17 Prior Level of Function: Independent with ADLs. Assist from spouse for occasional IADLs (cooking/cleaning). Prior Living Status: Bi-level house, Spouse, Assist by family- Basement is optional Community Services: No known needs Home Accessibility: Stairs with rails, All needs on one level, Basement in home, Walk-in shower, Tub/shower combination Equipment Owned: Front wheeled walker, toilet rise Medical Complications/Past Medical History: CAD, Type 2 DM, BPH Psychosocial Support: Supportive spouse Pain Scale (0-10): 04/30 OBJECTIVE: Strength: B) knee extension limited by neural discomfort, unable to achieve full knee extension d/t hip pain B) hip flexion, knee flexion, DF: 4/5 ROM: Bilateral knee extension limited by neural tension Sensation: Pt reports a numb sensation down B) anterior thighs and some tingling into toes at times. Other Neuro findings: s/p Lumbar surgery with Dr. Kumar aware of pt reports Bed Mobility: Edward log roll Transfers: Edward with RW Gait: Edward with RW x400' Stairs: 2x4 stairs with Edward and single railing Timed Up and Go (>12 seconds indicated increased risk for falls): 15 seconds ASSESSMENT: The patient has met all PT goals and is safe to d/c home from a mobility stand point when medically appropriate. The pt is Edward with all functional mobility with use of RW and demonstrates the ability to i)ly annabel/ doff his lumbar brace. TUG test improved from 50 seconds at eval to 15 seconds today. The patient may benefit from OP PT services for gait and balance training if deemed appropriate by Dr. Kumar upon f/u visit later this week. The patient will d/c home with use of RW and assistance from spouse. Problem List/Current Limitations: Pain, Decreased activity ivory, Decreased strength, Decreased balance Short Term Goals: (all met) 1. Pt to be modified indep for all bed mobility and supine to/from sit transfers. 2. Pt to be Mod Indep/SBA for all sit to/from stand transfers 3. Pt to be Mod Indep to don/doff brace appropriately 4. Pt to ambulate 300' with least restrictive device and Mod Indep/SBA Field Training Agent Goals: Pt to return home with use of least restrictive device and support of as needed. (met) Patient Goals: Return home with improved pain control (met) PLAN: The patient will d/c home with assistance from spouse and use of RW. He will f/u with Dr. Kumar later this week. Thank you for this referral. If you have any questions, concerns, or comments about this report or plan, please contact me at . Melody Méndez, PT, DPT MTDD
--- NOTE | 2017-12-31 13:20 | DISCHARGE SUMMARY ---
DATE OF ADMISSION: November 28, 2017 DATE OF DISCHARGE: December 02, 2017 REASON FOR ADMISSION Mr. Mccall is a 72-year-old gentleman who on 11/24/17 underwent L3 to S1 laminectomy with L4-5 posterior lateral instrumented fusion. Postoperatively, he had difficulty with pain control and difficulty passing physical therapy. By postoperative day #4 it was clear that he needed further PT and further inpatient care and so he was evaluated for and transferred to the extended care facility. Throughout the course of his stay at the extended care facility, he received appropriate pain medications as well as physical therapy and ultimately on 12/02/17 passed physical therapy and was discharged home with instructions to follow up with Dr. Kumar for his scheduled postoperative visit. [facility]
== END 2017-12-02 14:00 | disposition home or self-care (01) | DRG 950 ==
LOC: ECF 11:30
PROVIDERS: ADMIT Orthopaedic Surgery; ATTEND Orthopaedic Surgery
DX: Z48.811 Encounter for surgical aftercare following surgery on the nervous system (principal); Z98.1 Arthrodesis status; I25.2 Old myocardial infarction; Z95.5 Presence of coronary angioplasty implant and graft
CPT/HCPCS: 36416; 82948; 97161; 97166